=== PATIENT | female | born 1960 | race Caucasian/White ===

== ENCOUNTER → 2017-09-05 | Outpatient (CLI) | payer OTHER ==
--- NOTE | 2017-09-05 15:54 | RADIOLOGY IMAGING REPORT ---
FACILITY: [facility] PATIENT NAME: Yenni Castro : 1960 MR: [id number] V: [id number] EXAM DATE: ORDERING PHYSICIAN: JB FLEMING TECHNOLOGIST: Location: [facility] - [place] Patient: Yenni Castro : 1960 Visit/Account:[id number] Date of Sevice: 09/05/2017 DEXA Scan Clinical history: Osteopenia. Comparison: DEXA scan from 04/29/2012. LUMBAR SPINE: The bone mineral density (BMD) measured from L1-L4 correlates with a Z-score of -0.8 and a T-score of -1.3 which is osteopenia as defined by the World Health Organization. The corresponding risk of fra cture in the lumbar spine is 2-3 times increased compared with a young adult reference population. T his value has decrease by 1.4 % since the prior study. More than 5% change is considered significant . HIP: Bone mineral density (BMD) measured in the LEFT total hip region correlates with a Z-score -1 and a T -score of -1.4 which is osteopenia as defined by the World Health Organization. The corresponding ri sk of fracture in the hip is 2-3 times increased compared to a young adult reference population. This value has decrease by 2.9 % since the prior study. More than 5% change is considered significant. T score left femoral neck -2.1 Bone mineral density (BMD) measured in the Femoral Neck region measures 0.739 g/cm?. IMPRESSION: 1. Lumbar spine: Osteopenia. There has been 1.4% decrease in the bone mineral density since the pre vious exam. 2. Left Total Hip: Osteopenia. There has been 2.9% decrease in the bone mineral density since the p revious exam. 3. Femoral Neck: Bone Mineral Density is 0.739 g/cm? The next DEXA scan of this patient should include the following sites: L1-L4 and the left hip. FRAX? WHO Fracture Risk Assessment Tool link: <http://www.shef.ac.uk/FRAX/tool.jsp?locationValue=9> PLEASE NOTE: 1) The World Health Organization defines low BMD as follows: T-score Normal > -1 Osteopenia < -1 and > -2.5 Osteoporosis < -2.5 without fractures Established osteoporosis < -2.5 with fractures 2) In general, you may wish to consider: Diagnosis Treatment Follow-up DEXA Normal BMD Prevention 2-3 years Osteopenia Prevention/therapy 1-2 years Osteoporosis Therapy Yearly 3) Fracture risk estimated from the T-score is more accurate for vertebral fractures (often spontane ous) than for hip fractures. Report Dictated By: Tresa Mendes MD at 09/05/2017 3:49 PM Report E-Signed By: Tresa Mendes MD at 09/05/2017 3:50 PM WSN:[email or web address]
--- NOTE | 2017-09-10 09:08 | RADIOLOGY IMAGING REPORT ---
FACILITY: [facility] - [place] PATIENT NAME: PAUL COLLINS : [id number] MR: [id number] V: [id number] EXAM DATE: [id number] ORDERING PHYSICIAN: JB FLEMING TECHNOLOGIST: Nayeli Gorman PROCEDURE:BILATERAL DIGITAL SCREENING MAMMOGRAM WITH CAD ASSISTED INTERPRETATION AND 3D BREAST TOMOSYNTHESIS. COMPARISON:Prior mammograms dated 07/02/16, 05/12/15, 05/06/14, 05/04/13, 04/29/12 and 04/26/11. INDICATIONS:SCREENING FINDINGS: Dense heterogeneous fibroglandular tissue is seen throughout the breasts. The parenchymal pattern has remained stable when allowing for difference in mammographic technique and patient positioning. There is no evidence of malignant appearing mass, malignant appearing calcification or other secondary sign of malignancy in either breast. DIAGNOSTIC CATEGORY 1--NEGATIVE. RECOMMENDATIONS: ROUTINE MAMMOGRAM AND CLINICAL EVALUATION. IMPRESSION: Bi-RADS 1: No significant abnormality is seen. Images were reviewed with R2CAD and 3D breast tomosynthesis. Dictated by: Tresa Mendes M.D. on 09/05/2017 at 15:28 Transcribed by: [email or web address] on 09/05/2017 at 20:08 Approved by: Tresa Mendes M.D. on 09/10/2017 at 9:07 [facility]
== END ==
LOC: MAMO 01:22
PROVIDERS: ATTEND Nurse Practitioner Family
DX: Z13.820 Encounter for screening for osteoporosis (principal); Z12.31 Encounter for screening mammogram for malignant neoplasm of breast; M85.80 Other specified disorders of bone density and structure, unspecified site; E28.39 Other primary ovarian failure
CPT/HCPCS: 77063; 77067; 77080

== ENCOUNTER → 2018-01-17 | Outpatient (CLI) | payer OTHER ==
[~2018-01-17] MED LIST: ATOR40TA24 PO; VITA-195 PO
== END ==
LOC: AUD 15:30
PROVIDERS: ATTEND Otolaryngology
DX: R42 Dizziness and giddiness (principal); H91.93 Unspecified hearing loss, bilateral; H93.13 Tinnitus, bilateral
CPT/HCPCS: 92557; 92570

== ENCOUNTER → 2018-11-04 | Outpatient (CLI) | payer OTHER ==
--- NOTE | 2018-11-05 17:24 | RADIOLOGY IMAGING REPORT ---
FACILITY: [facility] PATIENT NAME: PAUL COLLINS : [id number] MR: [id number] V: [id number] EXAM DATE: ORDERING PHYSICIAN: SABIHA KOHLI TECHNOLOGIST: Nayeli Gorman PROCEDURE:BILATERAL DIGITAL SCREENING MAMMOGRAM WITH CAD ASSISTED INTERPRETATION & 3D TOMOSYNTHESIS COMPARISON:Prior mammograms dated 09/05/17, 07/02/16, 05/12/15, 05/16/14, 05/04/13, 04/29/12 INDICATIONS:SCREENING FINDINGS: The breasts are heterogeneously dense which can obscure small masses. The parenchymal pattern has remained stable when allowing for difference in mammographic technique & patient positioning. RECOMMENDATIONS: ROUTINE MAMMOGRAM AND CLINICAL EVALUATION. IMPRESSION: BIRADS 1: Negative. No significant abnormality is seen. Dictated by: Tresa Mendes M.D. on 11/04/2018 at 17:08 Transcribed by: JONATHAN on 11/05/2018 at 9:53 Approved by: Tresa Mendes M.D. on 11/05/2018 at 17:23 [facility]
== END ==
LOC: MAMO 01:52
PROVIDERS: ATTEND Nurse Practitioner Family
DX: Z12.31 Encounter for screening mammogram for malignant neoplasm of breast (principal)
CPT/HCPCS: 77063; 77067

== ENCOUNTER → 2018-11-21 | Outpatient (CLI) | payer OTHER ==
--- NOTE | 2018-11-21 17:00 | RADIOLOGY IMAGING REPORT ---
FACILITY: [facility] [place] PATIENT NAME: Yenni Castro : 1960 MR: [id number] V: [id number] EXAM DATE: ORDERING PHYSICIAN: JB FLEMING TECHNOLOGIST: Location: [facility] - [place] Patient: Yenni Castro : 1960 Visit/Account:[id number] Date of Sevice: 11/21/2018 DEXA Scan Clinical history: Osteopenia. Comparison: 09/05/2017. LUMBAR SPINE: The bone mineral density (BMD) measured from L1-L4 correlates with a Z-score -0.6 and a T-score of -1 .6 which is osteopenia as defined by the World Health Organization. The corresponding risk of fractu re in the lumbar spine is increased compared with a young adult reference population. HIP: Bone mineral density (BMD) measured in the Left total hip region correlates with a Z-score -1.1 and a T-score of -1.9 which is osteopenia as defined by the World Health Organization. The corresponding risk of fracture in the hip is increased compared with a young adult reference population. Bone mineral density (BMD) measured in the Femoral Neck region measures 0.742 g/cm2. Impression: 1. Lumbar spine: Osteopenia. 2. Left Hip: Osteopenia. 3. Femoral Neck: Bone Mineral Density is 0.742 g/cm2 The next DEXA scan of this patient should include the following sites: L1-L4 and the left hip. FRAX? WHO Fracture Risk Assessment Tool link: <http://www.shef.ac.uk/FRAX/tool.jsp?locationValue=9> PLEASE NOTE: 1) The World Health Organization defines low BMD as follows: T-score Normal > -1 Osteopenia < -1 and > -2.5 Osteoporosis < -2.5 without fractures Established osteoporosis < -2.5 with fractures 2) In general, you may wish to consider: Diagnosis Treatment Follow-up DEXA Normal BMD Prevention 2-3 years Osteopenia Prevention/therapy 1-2 years Osteoporosis Therapy Yearly 3) Fracture risk estimated from the T-score is more accurate for vertebral fractures (often spontane ous) than for hip fractures. Report Dictated By: Rob Mtz MD at 11/21/2018 4:54 PM Report E-Signed By: Rob Mtz MD at 11/21/2018 4:56 PM WSN:[email or web address]
== END ==
LOC: RAD 02:24
PROVIDERS: ATTEND Nurse Practitioner Family
DX: M85.89 Other specified disorders of bone density and structure, multiple sites (principal)
CPT/HCPCS: 77080